=== PATIENT | female | born 1980 | race Two or more races ===

== ENCOUNTER 2023-01-07 14:24 | Outpatient (CLI) | payer OTHER | END 2023-01-07 14:30 | disposition home or self-care (01) | LOC: RAD 14:24 | PROVIDERS: ATTEND Orthopaedic Surgery | DX: M79.641 Pain in right hand (principal) ==

== ENCOUNTER 2023-06-22 02:55 | Emergency (ER) | payer OTHER ==
[~2023-06-22] VITALS: Ht 172.7 cm; Wt 63.5 kg
== END 2023-06-22 17:43 | disposition home or self-care (01) ==
LOC: ER 02:55
DX: K52.9 Noninfective gastroenteritis and colitis, unspecified (principal); R10.9 Unspecified abdominal pain
CPT/HCPCS: 36415; 74176; 96365; 99284; J3490